=== PATIENT | female | born 1935 | race Caucasian/White ===

== ENCOUNTER 2025-08-30 11:22 | Outpatient (REF) | payer MEDICARE, OTHER, SELFPAY ==
--- OUTSIDE RECORDS SUMMARY | 2025-08-26 09:21 | XMS_ITS | Continuity of Care Document ---
Author Organization [facility] Address [address] [place] [address] Phone Care Team Providers Care Outreach And Education Social Worker Name Role Phone Louisa Land MD Primary Care Provider Louisa Land MD Attending Provider Care Teams Patient Care Team Team Status: Active Member Role/Relationship Status Dates Louisa Land MD Primary Care Provider Active Visit Care Team Team Status: Inactive Member Role/Relationship Status Dates Louisa Land MD Primary Care Provider Active Start: August 26, 2025 End: August 26, 2025Louisa Land MDAttending ProviderActiveStart: August 26, 2025 End: August 26, 2025 Chief Complaint and Reason for Visit Chief Complaint Admit Date L leg swelling August 26, 2025 1:23pm Reason for Visit Admit Date Hypothyroidism August 26, 2025 1:23pm Medication monitoring encounter August 26, 2025 1:23pm Paronychia of great toe, left August 162024 1:23pm Urinary incontinence August 26, 2025 1:23pm Reason for Referral Type Reason(s) Provider Provider Contact Information P sary Address Start Date Paronychia of great toe of left foot L03.032 - Cellulitis of left toeL03.032 - Cellulitis of left toeJoesph Higgins Phone: [phone] [address] [address]Cdjzyyxr 2024 Allergies, Adverse Reactions, Alerts Allergen Type Severity Reaction Last Updated Verified Status No Known Allergies Allergy Unknown August 26, 2025 1:34pmYesActive Social History Smoking Status Status Start Date End Date Date of Observa tion Never smoked tobacco (finding) April 12, 2025 10:50am Observation Status Observation Response Date of Response Legal Sex Female (finding) Sex Assigned At BirthFemaleDecember 1934 Problems Active Problems Problem Diagnosis/Recorded Date Onset Date Stat us Falls frequently April 10, 2025 2:03pm Unknown A ctive Insomnia May 27, 2025 7:44am Unknown Active Fever April 13, 2025 9:35am Unknown Activ e Urinary incontinence August 26, 2025 2:03pm Unknow n Active Catheter-associated urinary tract infection April 10, 2025 3:44pm Unknown Active Intramuscular hematoma April 10, 2025 2:23pm Unknown Active Medication monitoring encounter August 26, 2025 2: 03pm Unknown Active Hypothyroidism April 10, 2025 12:21pm Unknown Ac tive Aspiration pneumonia April 13, 2025 9:35am Unknown Active Carrie UTI April 13, 2025 9:35am Unknown Activ e Acute UTI April 10, 2025 2:03pm Unknown Activ e Paroxysmal atrial fibrillation April 10, 2025 12:22pm Unknown Active Paronychia of great toe, left August 26, 2025 2:17 pm Unknown Active Inactive/Resolved Problems Problem Diagnosis/Recorded Date Onset Date Stat us Metabolic encephalopathy April 10, 2025 3:44pm Unknow n Resolved Altered mental status April 10, 2025 2:03pm Unknown Resolved Medications Medication Status Dose Units Route Directions Qty Days Refills S tart Date Stop Date End Date Reason(s) Instructions Adherence Levothyroxine (Synthroid) 75 mcg tablet Discontinued 75 MCG PO Daily 90 0May 27, 2025 7:42amDecember 2024 8:41amHydroxychloroquine 200 mg lzmmxhVlnwthzgccbu526VOMRIfvgz558Jrmhldjjw 10th, 2025 11:00pmNovember 2024 2:12pmAlprazolam 0.25 mg tabletActive0.25MGPODaily at bedtime as needed for sjjqr40178MtskrdekbMay 27, 2025 7:43amInsomnia Insomnia, unspecifiedComplies with drug therapyAmlodipine 2.5 mg tablet Discontinued2.5MGPOTwice xalgk947DgtntlhwnMay 26, 2025 11:00pmDecember 2024 8:38amTrazodone 50 mg vnurzbIitvnuyqiucf43KXSMGtvaq at ryfhhpo802Mwvdycfyo 2024 11:00pmOctober 2024 4:03pmTamsulosin (Flomax) 0.4 mg capsule Discontinued0.3QDRKNslzb362Cddpuplld 2024 7:45amOctober 2024 7:59am Meloxicam 15 mg ardfizFvwffzunytdl77WDKQSpnwn bwjlk602Jbmnqoyza 10th, 2025 11:00pmOctober 2024 7:31amMetoprolol Tartrate 25 mg mtafzzIoqiko65YKVH Twice uslbq46033Jskhxpnjf 2024 11:22amComplies with drug therapyGabapentin 300 mg jqkzqetQjhpkz540IORCIrulc gcqxq1502Ynbrlipuy 2024 11:00pmComplies with drug therapyMeloxicam 15 mg oenoomUrrcyl89EBAJFlulu xgutn247Jupmzjo 2024 7:30amComplies with drug therapyTamsulosin (Flomax) 0.4 mg capsuleActive0.4 SSXFPwzzl127Omnqjav 2024 7:58amComplies with drug therapyTrazodone 50 mg tabletActive0.ROUTE.GDOLGRL192Haxbahs 2024 4:03pmTAKE ONE TABLET BY MOUTH DAILY AT BEDTIMEComplies with drug therapyHydroxychloroquine 200 mg tabletActive 0.ROUTE.XOFPWJM904Aijjnhja 5th, 2025 2:12pmTAKE ONE TABLET BY MOUTH DAILY Complies with drug therapyLevothyroxine (Synthroid) 75 mcg bxkybeEirqio72BCXZP Wytjm957Uqmhtoxq 2024 8:41amComplies with drug therapyAspirin 81 mg utdseylUcvuoj52IBQHDtlqpYctr 2024 11:00pmComplies with drug therapy Lidocaine 4 % adhesive patch,cyxftpqyuAqdooyuznirf6CGDQUEMBXACPHeiny as needed for painJuly 2024 11:00pmSeptember 2024 12:07pmTamsulosin (Flomax) 0.4 mg capsuleDiscontinued0.4MGPODailyJuly 2024 11:00pmSeptember 2024 7:46amBisacodyl 10 mg edimsgdlwstDdrdannqcicq67LKWOHrmnf as needed for constipationJuly 2024 11:00pmDecember 2024 1:35pmLactulose 10 gram fufotwRzcrhycglpha21ATFJUcqkhAjmo 2024 11:00pmSeptember 2024 12:07pm Docusate Sodium 100 mg oqjariuFlpyra820XQYISedba dailyJuly 2024 11:00pm Complies with drug therapyGabapentin 300 mg vstonvbNkuzavxknrzs282KUOOXmvvx times dailyJuly 2024 11:00pmSeptember 2024 12:06pmLactobacillus Acidophilus ayegknaIkjrcafloosa17JKRWVnrpc 8 hours as needed for constipation April 09, 2025 11:00pmDecember 2024 1:37pmGlycerin (Adult) (Fleet Glycerin (Adult)) cdisgddwhtrAdfztnfixoqo5GDCSCZJxgrf as needed for constipation April 09, 2025 11:00pmSeptember 2024 12:06pmLoratadine (Allerclear) 10 mg rrdinjQhgoqq42GUVKXbzgqFruq 2024 11:00pmComplies with drug therapy Methocarbamol 500 mg auexdwQbkndbyktydg248QMMIVkgdn 8 hours as needed for muscle spasmJuly 2024 11:00pmSeptember 2024 12:07pmAmlodipine (Norvasc) 5 mg tabletDiscontinued2.5MGPODailyJuly 2024 11:00pmJuly 2024 8:47am Oxycodone 5 mg szmpcvbCsoadtpaaphi6XWGDQpmws 6 bknvo4Fejc 2024 11:00pmJuly 2024 3:59pmPolyethylene Glycol 3350 (Miralax) 17 gram/dose powder Oidjmgrmjxyb82SDIDAgtktAlah 2024 11:00pmSeptember 2024 12:07pm Pantoprazole (Protonix) [address] for susp in abtcvyEdinmilzvska28HWTA DailyJuly 2024 11:00pmSeptember 2024 12:07pmMelatonin 3 mg capsule Xaxoligsdwjz6KEOXSndemfjRrrt 2024 11:00pmDecember 2024 1:35pm Sennosides (Evac-U-Gen (Sennosides)) 8.6 mg tabletDiscontinued8.6MGPOBedtimeJuly 2024 11:00pmDecember 2024 1:36pmWound Dressings (Triad Wound Dressing) kfypwMgdhaszlwuuz1WVPUNAEAUUBHCOdjnw as needed for skin irritationJuly 2024 11:00pmSeptember 2024 12:08pmLevothyroxine (Synthroid) 75 mcg tzbgvoXhjnnzknyorz01TDPAAUlbohEkwl 2024 11:00pmSeptember 2024 7:46am Acetaminophen (Tylenol Extra Strength) 500 mg powder in ckfxljLvzsllhkkyyq8803SU POEvery 8 hoursJuly 2024 11:00pmJuly 2024 8:47amAlprazolam (Xanax) 0.5 mg tabletDiscontinued0.5MGPODaily at bedtimeJuly 2024 11:00pmJuly 2024 8:46amOxycodone 5 mg okxipyDumospbgxrzc0JVHQI0H as needed for Pain scale 7-10July 2024 11:00pmJuly 2024 8:46amFluconazole 100 mg tablet Lymauxkvnvzk961NFIUVobyw196Ndfq 2024 11:00pmSeptember 2024 7:43am Alprazolam (Xanax) 0.5 mg tabletDiscontinued0.5MGPODaily at saksyxu354Rjpb 2024 8:46amSeptember 2024 7:46amAltered mental status Altered mental status, unspecifiedOxycodone 5 mg kigfgxHakradbhokms0BHHYV9N as needed for Pain scale 7-041674Qwui 2024September 2024 12:07pm Intramuscular hematoma Other injury of unspecified body region, initial encounterAcetaminophen (Tylenol Extra Strength) 500 mg powder in djaiycAasofq9361IYDVJjmcp 8 hours as needed for bwdl50408Ltid 2024 8:46amComplies with drug therapyAmoxicillin-Pot Clavulanate (Augmentin) 500-125 mg wrtvacIrzwmznwwgmx8ISGJZPrzgi 12 uuuyy568Ddlp 2024 11:00pmSeptember 2024 7:43amMetoprolol Tartrate 25 mg Tablet Eovnlhvvzrro43FORUBhycj xwatw01458Ctkk 2024 11:00pmptember 2024 11:22amPrednisone 20 mg hhushxIqyeojjlkomg92OSBEOilkd380Yhmq 2024 11:00pm June 01, 2025 12:07pmOmeprazole 20 mg capsule,delayed release(DR/EC) Wgjmdw03SDZZSpftn621Ubzgtcxn 2024 12:00amComplies with drug therapy Amoxicillin-Pot Clavulanate 875-125 mg zmzxkzJxwdab6YJACHWqvfq qeupp029Pzcurhjb 2024 12:00amComplies with drug therapy Vital Signs Vital Reading Result Reference Range Collection Date/Time Height 59 [in_i] August 26, 2025 1:80brCjpock42.80 kgDecember 2024 1:33pmHeart Rate82 /hzw28-358Campdooa 2024 1:45pmBP Iucdcwqr116 mm[Hg]100-140December 2024 1:45pmBP Pccoweghe34 mm[Hg]60-100December 2024 1:45pmBMI (Body Mass Index)27.5 kg/e3Rgudipct 2024 1:33pm Advance Directives Advance Directive Response Recorded Date/ Time Advance Directives No December 05 1:01pm Insurance Providers Guarantor Cortney Waller Address [address] [place] [id number] Info.Home Phone: Payer Group Member ID Coverage Type Subscriber Relationship to Subscriber Effective Date Expiration Date Medicare [id number] K Lavine Id: [id number] [address] [place] [address] Home Phone: Email: Decline 17elfRegular Insurance [id number] K Lavine Id: [id number] [place] [address] Home Phone: Email: Decline 18Self Encounters Encounter Location(s) Arrival/Admit Date Discharge/Departure Date Discharge/Departure Disposition Provider(s) Departed Physician/ Provider Office Visit -[facility] August 26, 2025 1:23pm August 26, 2025 2:15pm Discharged to home care or self care (routine discharge) Louisa Land MD Recent Diagnosis Onset Date Admit Date Hypothyroidism Unknown August 26, 1:23pm Medication monitoring encounter Unknown August 26, 2025 1:23pm Paronychia of great toe, left Unknown De cember 2024 1:23pm Urinary incontinence Unknown August 262024 1:23pm Assessments Diagnosis Onset Date Resolution Status Admit Date Hypothyroidism acuteDecember 2024 1:23pmMedication monitoring encounteracuteDecemb2024 1:23pmParonychia of great toe, leftacuteDecember 2024 1:23pm Urinary incontinenceacuteDecemb2024 1:23pm Plan of Treatment Future Tests Future scheduled test information is unavailable Pending Tests Pending diagnostic test information is unavailable Future Visits Future appointment information is unavailable Future Procedures Procedure Name Ordered Date Scheduled Date Basic Metabolic Panel August 26, 2025 2:01pm Complete Blood Count Auto DiffDecemb2024 2:01pmFree T4 (Free Thyroxine) August 26, 2025 2:01pmThyroid Stim Hormone w/RflxDecemb2024 2:01pm Future Medications Future medication information is unavailable Patient Instructions Patient instructions are unavailable Hospital Discharge Instructions Ambulatory Orders* Referral to Podiatry Time Frame: 08/26/25, Location: None Selected
[2025-08-30 12:16] LABS: Hematocrit 41.7 % (36.0-48.0); Hemoglobin 13.5 g/dL (12.0-16.0); Immature Granulocytes Abs Auto 0.01 10^3/uL (0.00-0.03); Immature Granulocytes Pct Auto 0.2 % (0.0-0.5); Lymphocytes Absolute Auto 1.7 10^3/uL (1.2-3.8); Mean Corpuscular HGB Conc 32.4 g/dL (29.9-35.2); Mean Corpuscular Hemoglobin 27.0 pg (26.7-34.0); Mean Corpuscular Volume 83.4 fL (81.0-99.0); Platelet Count 297 10^3/uL (150-450); Red Blood Count 5.00 10^6/uL (4.20-5.40); White Blood Count 5.6 10^3/uL (4.0-11.0)
[2025-08-30 12:44] LABS: Anion Gap 14.3; Blood Urea Nitrogen 13.0 mg/dL (7.0-18.0); Calcium 9.0 mg/dL (8.5-10.1); Carbon Dioxide 27.0 mmol/L (21.0-32.0); Chloride 103 mmol/L (98-107); Estimated GFR (African America >60 (>=60 mL/min/1.73m^2); Estimated GFR (Non-African Ame >60 (>=60 mL/min/1.73m^2); Glucose 80 mg/dL (74-106); Potassium 4.3 mmol/L (3.5-5.1); Sodium 140 mmol/L (136-145); Thyroid Stimulating Hormone 5.978 uIU/mL (0.358-3.740)
== END 2025-08-30 11:23 | disposition home or self-care (01) ==
LOC: LAB 11:22
PROVIDERS: PCP Family Medicine; Visit Provider Family Medicine
DX: E03.9 Hypothyroidism, unspecified (principal); Z51.81 Encounter for therapeutic drug level monitoring; R32 Unspecified urinary incontinence
CPT/HCPCS: 36415; 80048; 84439; 84443; 85025